=== PATIENT | female | born 1995 | race Caucasian/White ===

== ENCOUNTER → 2019-02-07 08:41 | Outpatient (CLI) | payer BC, SELFPAY ==
[2019-02-07 10:42] LABS: Thyroid Stim Hormone (TSH) 1.16 uIU/mL (0.358-3.74)
== END ==
PROVIDERS: Family Provider Family Medicine; PCP Family Medicine; Referring Provider Family Medicine; Visit Provider Family Medicine
DX: F41.9 Anxiety disorder, unspecified (principal)
CPT/HCPCS: 36415; 84443